=== PATIENT | female | born 1995 | race Hispanic/Latino ===

== ENCOUNTER 2018-09-26 09:44 | Emergency (ER) | payer BC ==
[2018-09-26] MEDS ORDERED: HYOSCYAMINE SULFATE 0.125 MG TAB.SUBL SL ONE (10:37)
[2018-09-26] MEDS ORDERED: SIMETHICONE 80 MG TAB.CHEW ONE (10:37)
[2018-09-26] MEDS ORDERED: ACETAMINOPHEN EXTRA STRENGTH 500 MG TABLET ONE (10:37)
[2018-09-26] MEDS ORDERED: ONDANSETRON ODT 4 MG TAB ONE (10:38)
[2018-09-26 10:39] LABS: BASOPHILS % (AUTO) 0.4 % (0.0-5.0); EOSINOPHILS % (AUTO) 0.8 % (0.0-8.0); HEMATOCRIT 42.3 % (36-48); LYMPHOCYTES % (AUTO) 16.5 % (21.0-51.0); MEAN CORPUSCULAR HEMOGLOBIN 23.8 pg (27.0-33.0); MEAN CORPUSCULAR VOLUME 74.3 fL (79-99); MONOCYTES % (AUTO) 4.9 % (3.0-13.0); NEUTROPHILS % (AUTO) 77.4 % (40.0-77.0); PLATELET COUNT (AUTO) 213 K/uL (130-400); RED BLOOD CELL COUNT(AUTO) 5.69 MIL/uL (4.00-5.50); RED CELL DISTRIBUTION WIDTH 14.9 % (11.0-15.5)
[2018-09-26 10:55] LABS: CREATININE 0.8 mg/dL (0.5-1.5)
[2018-09-26 10:59] LABS: BILIRUBIN,TOTAL 1.2 mg/dL (0.2-1.0); TOTAL PROTEIN, SERUM 8.7 g/dL (6.0-8.3)
[2018-09-26 11:20] LABS: APPEARANCE,URINE Cloudy (CLEAR); BILIRUBIN,URINE Negative (NEGATIVE); COLOR,URINE Yellow (YELLOW); GLUCOSE, URINE (UA) Negative (NEGATIVE); KETONES,URINE Trace mg/dL (NEGATIVE); LEUKOCYTE ESTERASE ,URINE Moderate (NEGATIVE); NITRATE,URINE Negative (NEGATIVE); OCCULT BLOOD,URINE Large (NEGATIVE); PH,URINE 5.5 (5.0-8.0); PROTEIN,URINE Negative (NEGATIVE); UROBILINOGEN,URINE 0.2 mg/dL (0.2-1.0)
[2018-09-26 11:55] LABS: HCG,QUAL RESULT NEGATIVE (NEGATIVE)
[2018-09-26 11:56] LABS: BACTERIA,URINE Moderate /HPF (None Seen)
[2018-09-26] MEDS ORDERED: CLINDAMYCIN 600 MG/D5% WATER 50 ML IV ONE (13:06)
== END 2018-09-26 12:11 | disposition home or self-care (01) ==
LOC: EDH 09:44
DX: N39.0 Urinary tract infection, site not specified (principal); R19.7 Diarrhea, unspecified; Z87.891 Personal history of nicotine dependence
CPT/HCPCS: 36415; 80053; 81001; 81025; 83690; 85025; 99284; J3490

== ENCOUNTER 2019-06-22 14:17 | Emergency (ER) | payer BC | END 2019-06-22 14:57 | disposition home or self-care (01) | LOC: EDH 14:17 | DX: L03.316 Cellulitis of umbilicus (principal); Z98.890 Other specified postprocedural states; Z87.891 Personal history of nicotine dependence | CPT/HCPCS: 87070; 87076; 87077; 87186 ==

== ENCOUNTER 2019-08-01 23:02 | Emergency (ER) | payer BC | END 2019-08-01 23:39 | disposition home or self-care (01) | LOC: EDH 23:02 | DX: L08.89 Other specified local infections of the skin and subcutaneous tissue (principal); Z98.890 Other specified postprocedural states ==

== ENCOUNTER 2020-01-06 05:48 | Emergency (ER) | payer BC ==
[2020-01-06] MEDS ORDERED: ONDANSETRON HCL 4 MG/2 ML VIAL ONE (06:23)
[2020-01-06] MEDS ORDERED: SODIUM CHLORIDE 0.9% 1000ML 1,000 ML IV ONE (06:24)
[2020-01-06] MEDS ORDERED: ACETAMINOPHEN 325 MG TAB ONE (06:24)
[2020-01-06 06:36] LABS: CREATININE 0.8 mg/dL (0.5-1.5); POTASSIUM 4.1 mmol/L (3.5-5.1)
[2020-01-06 06:42] LABS: ALBUMIN 3.9 g/dL (3.5-5.0); BILIRUBIN,TOTAL 0.8 mg/dL (0.2-1.0); TOTAL PROTEIN, SERUM 8.3 g/dL (6.0-8.3)
[2020-01-06 07:13] LABS: APPEARANCE,URINE Clear (CLEAR); BILIRUBIN,URINE Negative (NEGATIVE); COLOR,URINE Yellow (YELLOW); GLUCOSE, URINE (UA) Negative (NEGATIVE); KETONES,URINE Negative (NEGATIVE); LEUKOCYTE ESTERASE ,URINE Small (NEGATIVE); NITRATE,URINE Negative (NEGATIVE); OCCULT BLOOD,URINE Negative (NEGATIVE); PH,URINE 6.5 (5.0-8.0); PROTEIN,URINE Negative (NEGATIVE)
[2020-01-06 07:16] LABS: HCG,QUAL RESULT NEGATIVE (NEGATIVE)
[2020-01-06 07:17] LABS: BASOPHILS % (AUTO) 0.2 % (0.0-5.0); HEMATOCRIT 43.4 % (36-48); LYMPHOCYTES % (AUTO) 10.3 % (21.0-51.0); MEAN CORPUSCULAR HEMOGLOBIN 24.7 pg (27.0-33.0); MEAN CORPUSCULAR HGB CONC 31.8 g/dL (32.0-36.0); MEAN CORPUSCULAR VOLUME 77.6 fL (79-99); NEUTROPHILS % (AUTO) 86.1 % (40.0-77.0); PLATELET COUNT (AUTO) 241 K/uL (130-400); RED BLOOD CELL COUNT(AUTO) 5.59 MIL/uL (4.00-5.50); RED CELL DISTRIBUTION WIDTH 14.9 % (11.0-15.5)
[2020-01-06 07:36] LABS: BACTERIA,URINE Rare /HPF (None Seen); RBC,URINE 0-1 /HPF (0-1); SQUAMOUS EPITHELIAL CELL,UR Few /HPF (0-2)
[2020-01-06] MEDS ORDERED: HYDROCODONE/ACETAMINOPHEN 10/325 MG TAB ONE (07:50)
== END 2020-01-06 09:29 | disposition home or self-care (01) ==
LOC: EDH 05:48
DX: B97.89 Other viral agents as the cause of diseases classified elsewhere (principal); R11.10 Vomiting, unspecified; E11.9 Type 2 diabetes mellitus without complications; Z90.49 Acquired absence of other specified parts of digestive tract
CPT/HCPCS: 36415; 70450; 71045; 80053; 81001; 81025; 85025; 87804 ×2; 96361; 96374; 99285; J2405; J7030

== ENCOUNTER 2021-01-23 07:48 | Emergency (ER) | payer BC ==
[2021-01-23] MEDS ORDERED: SOLU-MEDROL 40MG VIAL ONE (08:16)
[2021-01-23] MEDS ORDERED: DiphenhydrAMINE HCL 50 MG/ML VIAL ONE (08:17)
== END 2021-01-23 08:57 | disposition home or self-care (01) ==
LOC: EDH 07:48
DX: L50.0 Allergic urticaria (principal); E11.9 Type 2 diabetes mellitus without complications; Z87.891 Personal history of nicotine dependence; Z86.16 Personal history of COVID-19; Z88.8 Allergy status to other drugs, medicaments and biological substances
CPT/HCPCS: 96372 ×2; 99284; J1200; J2920

== ENCOUNTER 2022-01-15 19:52 | Emergency (ER) | payer BC ==
[~2022-01-15] VITALS: Ht 157.5 cm; Wt 122.5 kg
[2022-01-15] MEDS ORDERED: 0.9%NACL 1000ML 1,000 ML IV ONE (20:30)
[2022-01-15] MEDS ORDERED: METOCLOPRAMIDE 10 MG/2 ML VIAL IVP ONE (21:30)
[2022-01-15] MEDS ORDERED: DiphenhydrAMINE HCL 50 MG/ML VIAL IV ONE (21:30)
[2022-01-15 21:55] LABS: BASOPHILS % (AUTO) 0.3 % (0.0-5.0); EOSINOPHILS % (AUTO) 0.1 % (0.0-8.0); HEMATOCRIT 48.2 % (36-48); LYMPHOCYTES % (AUTO) 11.8 % (21.0-51.0); MEAN CORPUSCULAR HEMOGLOBIN 25.1 pg (27.0-33.0); MEAN CORPUSCULAR HGB CONC 31.1 g/dL (32.0-36.0); MEAN CORPUSCULAR VOLUME 80.6 fL (79-99); MONOCYTES % (AUTO) 2.8 % (3.0-13.0); NEUTROPHILS % (AUTO) 84.6 % (40.0-77.0); PLATELET COUNT (AUTO) 269 K/uL (130-400); RED BLOOD CELL COUNT(AUTO) 5.98 MIL/uL (4.00-5.50); RED CELL DISTRIBUTION WIDTH 14.3 % (11.0-15.5); WHITE BLOOD COUNT (AUTO) 14.2 K/uL (4.8-10.8)
[2022-01-15 22:02] LABS: CREATININE 0.7 mg/dL (0.5-1.5); POTASSIUM 4.6 mmol/L (3.5-5.1)
[2022-01-15 22:07] LABS: ALBUMIN 4.3 g/dL (3.5-5.0); BILIRUBIN,TOTAL 1.2 mg/dL (0.2-1.0); TOTAL PROTEIN, SERUM 9.1 g/dL (6.0-8.3)
[2022-01-15 22:57] LABS: APPEARANCE,URINE Cloudy (CLEAR); BILIRUBIN,URINE Negative (NEGATIVE); COLOR,URINE Yellow (YELLOW); GLUCOSE, URINE (UA) Negative (NEGATIVE); KETONES,URINE Negative (NEGATIVE); LEUKOCYTE ESTERASE ,URINE Small (NEGATIVE); NITRATE,URINE Negative (NEGATIVE); OCCULT BLOOD,URINE Small (NEGATIVE); PH,URINE 7.5 (5.0-8.0); PROTEIN,URINE Trace mg/dL (NEGATIVE)
[2022-01-15 23:01] LABS: HCG,QUAL RESULT NEGATIVE (NEGATIVE)
[2022-01-15 23:08] LABS: BACTERIA,URINE Moderate /HPF (None Seen); SQUAMOUS EPITHELIAL CELL,UR Few /HPF (0-2)
[2022-01-16] MEDS ORDERED: CEFTRIAXONE 1G VIAL IV ONE
[2022-01-16] MEDS ORDERED: KETOROLAC 15MG/ML VIAL (15MG/ML) IV ONE
[2022-01-16] MEDS ORDERED: ONDA4TAB10 PO (00:04)
[2022-01-16] MEDS ORDERED: CEPH500B PO (00:04)
[2022-01-16] MEDS ORDERED: IBUP-2070 PO (00:04)
[2022-01-16 00:41] VITALS: BP 137/87
== END 2022-01-16 01:01 | disposition home or self-care (01) ==
LOC: EDH 20:02
DX: N39.0 Urinary tract infection, site not specified (principal); R11.2 Nausea with vomiting, unspecified; R19.7 Diarrhea, unspecified; Z79.899 Other long term (current) drug therapy; Z20.822 Contact with and (suspected) exposure to COVID-19
CPT/HCPCS: 36415; 80053; 81001; 81025; 85025; 87077; 87088; 87186; 87635; 87804 ×2; 96361; 96374; 96375 ×2; 99284; C9803; J0696; J1200; J1885; J2765; J7030